=== PATIENT | male | born 1940 | race Caucasian/White ===

== ENCOUNTER 2016-12-12 13:35 | Emergency (ER) | payer MEDICARE ==
--- NOTE | ~2016-12-12 | CT71 ---
[facility]. [facility] A Service [facility] RADIOLOGY TEXT RESULTS PATIENT: CINDA DENG LOCATION: SED : 40 UNIT #: [id number] AGE: [address]: Kee Jeffries MD SEX: M ORDER DR: [id number] [place] [id number] E MR#: [id number] Acc #: [id number] NAME: CINDA DENG. : 1940 SEX: M STUDY DATE/TIME: 12/12/2016 13:27 UNIT: SED ROOM: STUDY DESCRIPTION: CT Head Wo Contrast Attending Physician: Kee Jeffries M.D. Ordering Physician: Kee Jeffries M.D. Primary Care Physician: Duran Rosenbaum D.O. MEDICAL IMAGING REPORT This report is preliminary unless electronic signature is present. EXAM CT head without contrast dated 12/12/[address] head without contrast dated 05/17/2013. HISTORY Left hand numbness involving the third and fourth fingers on and off today since 12:[address] exam was performed with one or more of the following radiation dose reduction techniques: automatic control, adjustment of mA and/or kV according to patient size, and iterative reconstruction. FINDINGS CT of the head was obtained without contrast in the axial plane as per the protocol. Age-appropriate parenchymal volume is seen. No acute intracranial hemorrhage, space occupying mass, mass effect, midline shift or hydrocephalus. Mild hypodensity is noted in the periventricular white matter, bilateral insular cortices, stable. No acute intracranial hemorrhage, space occupying solid mass, hydrocephalus or midline shift is seen. Bones, paranasal sinuses and mastoid air cells demonstrate minimal bilateral ethmoid sinus mucosal thickening with S-shaped nasal septal deviation. Left sided nasal septal deviation is noted in the posterior aspect. Imaged orbits and the ocular structures do not demonstrate any significant abnormality. Status post left cataract surgery. IMPRESSION 1. No significant interval change when compared to the prior study from 4 years ago. 2. No obvious acute intracranial abnormality. MRI is more sensitive and [facility]. [facility] A Service of [facility] RADIOLOGY TEXT RESULTS PATIENT: CINDA DENG LOCATION: [facility] UNIT #: [id number] AGE: [address]: Kee Jeffries MD SEX: M ORDER DR: specific in evaluation of early acute stroke. 3. Scattered hypodensities are noted in the brain, likely related to chronic microvascular ischemic change or migraine based on age and statistics. Dictated by... Timur Elias M.D. THIS IS AN ELECTRONICALLY VERIFIED REPORT Timur Elias M.D. at 12/13/2016 12:44 PM CPR/rnr TD: 12/12/2016 18:19 JOB #: [id number] MEDICAL IMAGING REPORT
[~2016-12-12 13:35] MED LIST: ASPIRIN PO; CERTAGEN PO; CIPRO PO; COREG PO; HYDROCODON-ACE1 EAC9 PO; LIPITOR PO; LISINOPRIL5 MG PO; MULTIPLE VITAMI1 T11 PO; SIMVASTATIN40 MG PO; VITAMIN D 3 PO; VITAMIN D400 UNI1 PO; ZOCOR; ZOFRAN PO
== END 2016-12-12 14:16 | disposition home or self-care (01) ==
LOC: SED 13:35
DX: R20.2 Paresthesia of skin (principal); I10 Essential (primary) hypertension; E78.5 Hyperlipidemia, unspecified; Z95.1 Presence of aortocoronary bypass graft; Z79.82 Long term (current) use of aspirin; Z79.899 Other long term (current) drug therapy
CPT/HCPCS: 70450; 99284

== ENCOUNTER → 2016-12-16 | Outpatient (CLI) | payer MEDICARE ==
--- NOTE | ~2016-12-16 | US37 ---
[facility] A Service [facility] RADIOLOGY TEXT RESULTS PATIENT: CINDA DENG LOCATION: SNIV : 40 UNIT #: [id number] AGE: [address]: Lamonte Webb MD SEX: M ORDER DR: [id number] [address] [address] [id number] O MR#: [id number] Acc #: [id number] NAME: CINDA DENG : 1940 SEX: M STUDY DATE/TIME: 12/16/2016 14:40 UNIT: SNIV ROOM: STUDY DESCRIPTION: US Carotid W/Doppler Bilateral Attending Physician: Lamonte Webb M.D. Referring Physician: Lamonte Webb M.D. Ordering Physician: Lamonte Webb M.D. Primary Care Physician: Duran Rosenbaum D.O. MEDICAL IMAGING REPORT This report is preliminary unless electronic signature is present. EXAM Bilateral carotid duplex. HISTORY Heart disease. Bilateral carotid artery stenosis. FINDINGS Duplex imaging of the carotid arteries was performed. The right common carotid artery is patent. Mild plaque is seen in the internal carotid artery. Velocity in the right common carotid is 103; internal is 111 proximally, 119 midportion, and 114 distally; and external is 95 cm per second. Right ICA/CCA ratio is 1.1. On the left side, the common carotid artery is patent. Moderate heterogeneous plaque is seen in the left internal carotid artery. Velocity in the left common carotid is 91; internal is 171 proximally, 125 midportion, and 96 distally; and external is 94 cm per second. Left ICA/CCA ratio is 1.8. Antegrade flow is seen in the right and left vertebral arteries. IMPRESSION 1. Plaque with less than 60% stenosis is seen in the right internal carotid artery. 2. Plaque with 50% to 69% is seen in the left internal carotid artery. 3. Antegrade flow is seen in the right and left vertebral arteries. Dictated by... Kemar Coleman M.D. [facility] A Service [facility] RADIOLOGY TEXT RESULTS PATIENT: CINDA DENG LOCATION: SNIV : 40 UNIT #: [id number] AGE: [address]: Lamonte Webb MD SEX: M ORDER DR: THIS IS AN ELECTRONICALLY VERIFIED REPORT Kemar Coleman M.D. at 12/17/2016 5:12 PM [place] TD: 12/17/2016 08:14 JOB #: [id number] MEDICAL IMAGING REPORT Page 1 of 1
== END | disposition home or self-care (01) ==
LOC: SNIV 14:24
DX: I65.23 Occlusion and stenosis of bilateral carotid arteries (principal)
CPT/HCPCS: 93880

== ENCOUNTER → 2017-06-19 | Outpatient (CLI) | payer MEDICARE ==
--- NOTE | ~2017-06-19 | US37 ---
[facility] A Service of [facility] & [facility] RADIOLOGY TEXT RESULTS PATIENT: CINDA DENG LOCATION: SNIV : 40 UNIT #: [id number] AGE: [address]: Lamonte Webb MD SEX: M ORDER DR: [id number] [place] [id number] O MR#: [id number] [facility] #: [id number] NAME: CINDA DENG : 1940 SEX: M STUDY DATE/TIME: 06/19/2017 11:00 UNIT: SNIV ROOM: STUDY DESCRIPTION: US Carotid W/Doppler Bilateral Attending Physician: Lamonte Webb M.D. Referring Physician: Lamonte Webb M.D. Ordering Physician: Lamonte Webb M.D. Primary Care Physician: Duran Rosenbaum D.O. MEDICAL IMAGING REPORT This report is preliminary unless electronic signature is present. EXAM Bilateral carotid duplex, 06/19/2017 HISTORY Carotid stenosis FINDINGS There is patent flow seen throughout the right common carotid, internal carotid and external carotid arteries. At the right carotid bifurcation, there is irregular, heterogeneous, and echogenic plaque, which extends into the proximal aspect of the internal carotid and external carotid arteries. The right common carotid artery peak velocity is 84 cm/sec. The right internal carotid artery peak systolic over end-diastolic velocities are: proximal 98/27 cm/sec, mid 120/29 cm/sec, distal 119/31 cm/sec. The right external carotid artery peak velocity is 74 cm/sec, and vertebral artery 31 cm/sec. The right ICA/CCA ratio is 1.4. There is patent flow seen throughout the left common carotid, internal carotid and external carotid arteries. The left carotid bifurcation has irregular, heterogeneous, and echogenic plaque, which extends into the proximal internal carotid artery, as well as external carotid artery. The left internal carotid artery peak systolic over end-diastolic velocities are: proximal 150/39 cm/sec, mid 205/44 cm/sec, distal 96/21 cm/sec. The left external carotid artery peak velocity is 78 cm/sec, vertebral artery 47 cm/sec. The left ICA/CCA ratio is 3.3. IMPRESSION 1. The right carotid artery has mild atherosclerosis, which is not hemodynamically significant by duplex criteria (less than 50%). 2. The left carotid artery has moderate atherosclerosis, consistent with 50% to 69% stenosis by duplex criteria. 3. Vertebral flow is antegrade bilaterally. [facility]. [facility] A Service of [facility] & [facility] RADIOLOGY TEXT RESULTS PATIENT: CINDA DENG LOCATION: [facility] : 40 UNIT #: [id number] AGE: [address]: Lamonte Webb MD SEX: M ORDER DR: Dictated by... Juan Carlos Nazario M.D. THIS IS AN ELECTRONICALLY VERIFIED REPORT Juan Carlos Nazario M.D. at 06/20/2017 5:24 PM Farrah TD: 06/19/2017 18:06 JOB #: [id number] MEDICAL IMAGING REPORT Page 1 of 1
== END | disposition home or self-care (01) ==
LOC: SNIV 09:36
DX: I65.23 Occlusion and stenosis of bilateral carotid arteries (principal)
CPT/HCPCS: 93880